=== PATIENT | female | born 1995 | race Caucasian/White ===

== ENCOUNTER 2023-09-21 06:52 | Inpatient (IN) | payer OTHER, MEDICAID ==
[2023-09-21] MEDS ORDERED: Nalbuphine 10 MG/ML Syringe IVPUSH PRN (07:37)
[2023-09-21] MEDS ORDERED: Ondansetron 4 MG/2 ML SDV IVPUSH PRN (07:37)
[2023-09-21] MEDS ORDERED: Lidocaine 1% 50 ML MDV INJECT PRN (07:37)
[2023-09-21] MEDS ORDERED: Oxytocin/Lactated Ringers 30 UNIT/500 ML BAG IV SCH ×2 (07:45→18:09)
[2023-09-21] MEDS: Lactated Ringers 1,000 ML IV SCH (07:59)
[2023-09-21] MEDS: Ampicillin 2 GM in Sodium Chloride 0.9% 100 ML IV ONE (07:59)
[2023-09-21] MEDS: Oxytocin/Lactated Ringers 30 UNIT/500 ML BAG IV SCH (08:03)
[2023-09-21 08:07] LABS: BASOPHILS PERCENT AUTO 0.3 % (0.0-1.0); EOSINOPHILS ABSOLUTE AUTO 0.1 K/mm3 (0.0-0.4); EOSINOPHILS PERCENT AUTO 0.8 % (0.0-6.0); HEMATOCRIT 33.8 % (37.0-47.0); HEMOGLOBIN 11.4 gm/dl (12.0-16.0); IMMATURE GRAN ABSOLUTE AUTO 0.03 K/mm3 (0.00-0.05); IMMATURE GRAN PERCENT AUTO 0.5 % (0.0-0.4); LYMPHOCYTES ABSOLUTE AUTO 1.2 K/mm3 (1.0-4.8); LYMPHOCYTES PERCENT AUTO 18.5 % (24.0-44.0); MEAN CORPUSCULAR HEMOGLOBIN 28.4 pg (28.0-32.0); MEAN CORPUSCULAR HGB CONC 33.7 g/dl (32.0-36.0); MEAN CORPUSCULAR VOLUME 84.1 fl (83.0-99.0); MEAN PLATELET VOLUME 10.8 fl (9.4-12.3); MONOCYTES ABSOLUTE AUTO 0.3 K/mm3 (0.0-0.8); MONOCYTES PERCENT AUTO 5.1 % (0.0-8.0); NEUTROPHILS ABSOLUTE AUTO 4.9 K/mm3 (1.8-7.7); NEUTROPHILS PERCENT AUTO 74.8 % (41.0-71.0); PLATELET COUNT,PLT 186 K/mm3 (150-400); RED BLOOD CELL COUNT 4.02 M/mm3 (4.10-5.30); WHITE BLOOD CELL COUNT,WBC 6.49 K/mm3 (3.9-11.3)
[2023-09-21] MEDS ORDERED: diphenhydrAMINE 50 MG/ML SDV IVPUSH PRN (11:11)
[2023-09-21] MEDS ORDERED: fentaNYL 100 MCG/2 ML SDV EPIDUR PRN (11:11)
[2023-09-21] MEDS ORDERED: Naloxone 0.4 MG/ML SDV IVPUSH PRN (11:11)
[2023-09-21] MEDS ORDERED: ePHEDrine 50 MG/ML SDV IVPUSH PRN (11:11)
[2023-09-21] MEDS: Bupivacaine/fentaNYL/NS 100 ML Bag EPIDUR PRN (11:45)
[2023-09-21] MEDS: Ampicillin 1 GM in Sodium Chloride 0.9% 100 ML IV SCH (11:50)
[2023-09-21] MEDS ORDERED: Docusate Sodium 100 MG Cap PO PRN (18:09)
[2023-09-21] MEDS ORDERED: Simethicone 80 MG Tab.Chew PO PRN (18:09)
[2023-09-21] MEDS ORDERED: Witch Hazel Medicated Pads 40/Jar TOP PRN (18:09)
[2023-09-21] MEDS ORDERED: Ibuprofen 600 MG Tab PO SCH (18:09)
[2023-09-21] MEDS ORDERED: Hydrocortisone Acetate 25 MG Supp RECTAL PRN (18:09)
[2023-09-21] MEDS ORDERED: Magnesium Hydroxide 400 MG/5 ML Susp 30 ML Cup PO PRN (18:09)
[2023-09-21] MEDS ORDERED: Benzocaine/Menthol 20%-0.5% Spray 78 GM Cannister TOP PRN (18:09)
[2023-09-21] MEDS ORDERED: Acetaminophen 325 MG Tab PO PRN (18:09)
[2023-09-21] MEDS: Ibuprofen 600 MG Tab PO SCH (22:19)
[2023-09-22] MEDS ORDERED: Levothyroxine 125 MCG Tab PO SCH (06:00)
[2023-09-22] MEDS: Levothyroxine 25 MCG Tab PO SCH (06:24)
[2023-09-22] MEDS: Levothyroxine 112 MCG Tab PO SCH (06:24)
[2023-09-22] MEDS: Prenatal Multivitamin with Calcium/Folic Acid/Iron Tab PO SCH (08:55)
== END 2023-09-22 19:45 | disposition home or self-care (01) | DRG 807 ==
LOC: JD.OB 06:52 → OBSVTOIN 17:31 → JD.OB 17:32
PROVIDERS: ADMIT Obstetrics & Gynecology; ATTEND Obstetrics & Gynecology
PROC: 10E0XZZ Delivery of Products of Conception, External Approach (ICD-10-PCS; principal; 2023-09-21)
PROC: 10907ZC Drainage of Amniotic Fluid, Therapeutic from Products of Conception, Via Natural or Artificial Opening (ICD-10-PCS; 2023-09-21)
PROC: 3E033VJ Introduction of Other Hormone into Peripheral Vein, Percutaneous Approach (ICD-10-PCS; 2023-09-21)
PROC: 3E0R3BZ Introduction of Anesthetic Agent into Spinal Canal, Percutaneous Approach (ICD-10-PCS; 2023-09-21)
PROC: 00HU33Z Insertion of Infusion Device into Spinal Canal, Percutaneous Approach (ICD-10-PCS; 2023-09-21)
PROC: 3E0334Z Introduction of Serum, Toxoid and Vaccine into Peripheral Vein, Percutaneous Approach (ICD-10-PCS; 2023-09-22)
DX: O99.824 Streptococcus B carrier state complicating childbirth (principal); Z37.0 Single live birth; O99.284 Endocrine, nutritional and metabolic diseases complicating childbirth; E03.9 Hypothyroidism, unspecified; O26.893 Other specified pregnancy related conditions, third trimester; O69.81X0 Labor and delivery complicated by cord around neck, without compression, not applicable or unspecified; F41.9 Anxiety disorder, unspecified; F32.A Depression, unspecified; O99.344 Other mental disorders complicating childbirth; Z3A.39 39 weeks gestation of pregnancy; Z67.11 Type A blood, Rh negative
CPT/HCPCS: 36415; 51702; 59025; 59409; 85025; 86592; A9270-GY; J0290; J2790; J3490; J7120; J7999